=== PATIENT | female | born 1965 | race Caucasian/White ===

== ENCOUNTER 2017-07-08 08:15 | Emergency (ER) | payer MEDICAID ==
[~2017-07-08] VITALS: Ht 170.2 cm; Wt 65.0 kg
[~2017-07-08 08:15] MED LIST: ALBU.5I NEB; ALBU6.7H INH; BECL80AE3 INH; BUSP10TA PO; GABA300C5 PO; MELO7.5T4 PO; METO25TA3 PO; NEBUKIT5; OMEP40CA2 PO; PRAV80TA2 PO; SPIRCAP INH; TIOT12.9 INH; [UNRECOGNIZED DRUG - OTHER]
[2017-07-08 08:18] VITALS: BP 132/73; PULSE 67; RESP 15; TEMP 98.2; O2SAT 98
[2017-07-08] MEDS ORDERED: IBUPROFEN 800 MG TAB PO ONE (08:30)
[2017-07-08] MEDS ORDERED: TETANUS/DIPHTHERIA TOXOID ADULT 0.5 ML VIAL IM ONE (08:30)
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
[2017-07-08] MEDS ORDERED: IBUP-232 PO (09:27)
[2017-08-04] MEDS ORDERED: BUSP10TA PO (13:33)
[2017-08-17] MEDS ORDERED: SPIRCAP INH (20:39)
== END 2017-07-08 09:39 | disposition home or self-care (01) ==
LOC: NEPK 08:15
DX: S69.91XA Unspecified injury of right wrist, hand and finger(s), initial encounter (principal); S40.812A Abrasion of left upper arm, initial encounter; S40.811A Abrasion of right upper arm, initial encounter; S20.319A Abrasion of unspecified front wall of thorax, initial encounter; S80.812A Abrasion, left lower leg, initial encounter; Y08.89XA Assault by other specified means, initial encounter; Z72.0 Tobacco use; Z79.51 Long term (current) use of inhaled steroids; Z23 Encounter for immunization
CPT/HCPCS: 73130; 90471; 90714

== ENCOUNTER 2017-12-06 13:29 | Emergency (ER) | payer MEDICAID, OTHER ==
[~2017-12-06] VITALS: Ht 168.9 cm; Wt 54.0 kg
[~2017-12-06 13:29] MED LIST changes: -BECL80AE3 INH; +IBUP-232 PO; +MELO7.5T27 PO; -MELO7.5T4 PO; -NEBUKIT5; -TIOT12.9 INH; -[UNRECOGNIZED DRUG - OTHER]
[2017-12-06 14:01] VITALS: BP 126/82; PULSE 82; RESP 16; TEMP 98.6; O2SAT 97
[2017-12-06] MEDS ORDERED: RESP: ALBUTEROL 2.5 MG/IPRATROPIUM 0.5 MG NEB (SCH) NEB ONE (14:30)
[2017-12-06 14:41] LABS: AUTOMATED NEUTROPHIL # 4.9 TH/MM3 (1.8-7.7); BASOPHIL % 0.5 % (0.0-2.0); EOSINOPHIL # 0.2 TH/MM3 (0-0.4); EOSINOPHIL % 2.9 % (0.0-4.0); HEMATOCRIT 37.6 % (35.0-46.0); HEMOGLOBIN 13.4 GM/DL (11.6-15.3); LYMPH % 24.6 % (9.0-44.0); LYMPHOCYTE # 1.9 TH/MM3 (1.0-4.8); MEAN CELL VOLUME 89.8 FL (80.0-100.0); MEAN CORPUSCULAR HEMOGLOBIN 31.9 PG (27.0-34.0); MEAN CORPUSCULAR HGB CONC 35.6 % (32.0-36.0); MEAN PLATELET VOLUME 9.3 FL (7.0-11.0); MONO % 8.8 % (0.0-8.0); MONOCYTE # 0.7 TH/MM3 (0-0.9); NEUT % 63.2 % (16.0-70.0); PLATELET COUNT 234 TH/MM3 (150-450); RED BLOOD COUNT 4.19 MIL/MM3 (4.00-5.30); RED CELL DISTRIBUTION WIDTH 12.9 % (11.6-17.2); WHITE BLOOD COUNT 7.7 TH/MM3 (4.0-11.0)
[2017-12-06 14:55] LABS: BILIRUBIN, URINE NEG (NEG); BLOOD, URINE MOD (NEG); GLUCOSE,URINE NEG (NEG); HYALINE CAST, URINE 1 /lpf (RARE); KETONE, URINE TRACE mg/dL (NEG); MUCUS URINE FEW /lpf (OCC); NITRITE,URINE NEG (NEG); PH, URINE 5.5 (5.0-8.5); SQUAMOUS EPITHELIAL CELL URINE 3 /hpf (0-5); URINE COLOR YELLOW (YELLW/STRAW); URINE LEUKOCYTE ESTERASE SMALL (NEG)
[2017-12-06 15:04] LABS: BICARBONATE 26.9 MEQ/L (21.0-32.0); BLOOD UREA NITROGEN 25 MG/DL (7-18); CHLORIDE 106 MEQ/L (98-107); CREATININE 0.88 MG/DL (0.50-1.00); GLOMERULAR FILTRATION RATE 67 ML/MIN (>89); GLUCOSE,RANDOM 88 MG/DL (74-106); SODIUM (NA) 138 MEQ/L (136-145)
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
[2017-12-06 16:42] VITALS: BP 140/84; PULSE 96; RESP 18; O2SAT 98
[2017-12-06] MEDS ORDERED: RESP: ALBUTEROL 2.5 MG/IPRATROPIUM 0.5 MG NEB (PRN) NEB (18:30)
[2017-12-06 22:03] VITALS: BP 171/68; PULSE 91; RESP 17; TEMP 98.2; O2SAT 95
[2017-12-07 01:50] VITALS: O2SAT 96
[2017-12-07 07:04] VITALS: BP 124/60; PULSE 99; RESP 18; TEMP 97.7; O2SAT 98
[2017-12-07 11:06] VITALS: BP 140/79; PULSE 88; RESP 18; O2SAT 96
--- NOTE | 2017-12-07 12:21 | PD ---
Physical Exam Date Seen by Provider: Dec 07, 2017 Time Seen by Provider: 12:20 Narrative 52-year-old female previously medically cleared for psychiatric evaluation after being Matson acted. Patient was seen by Dr. Carter, the psychiatrist, and felt to be psychiatrically stable for discharge. The patient remains to be medically stable at this time. Follow-up should be based on Dr. Carter's psychiatric plan. Data Data Last Documented VS Vital Signs Date Time Temp Pulse Resp B/P (MAP) Pulse Ox O2 Delivery O2 Flow Rate FiO2 12/07/17 11:06 88 18 140/79 (99) 96 Room Air 12/07/17 07:04 97.7 Orders Orders Albuterol-Ipratropium Neb (Duoneb Neb) (12/06/17 14:30) Complete Blood Count With Diff (12/06/17 14:17) Thyroid Stimulating Hormone (12/06/17 14:17) Basic Metabolic Panel (Bmp) (12/06/17 14:17) Urinalysis - C+S If Indicated (12/06/17 14:17) Psych Screen (12/06/17 14:17) Drug Screen, Random Urine (12/06/17 14:17) Alcohol (Ethanol) (12/06/17 14:17) Diet Regular Basic (12/06/17 Dinner) Albuterol-Ipratropium Neb (Duoneb Neb) (12/06/17 18:30) Diet Regular Basic (12/07/17 Breakfast) Diet Regular Basic (12/07/17 Lunch) Labs Laboratory Tests Test 12/06/17 14:15 White Blood Count 7.7 TH/MM3 Red Blood Count 4.19 MIL/MM3 Hemoglobin 13.4 GM/DL Hematocrit 37.6 % Mean Corpuscular Volume 89.8 FL Mean Corpuscular Hemoglobin 31.9 PG Mean Corpuscular Hemoglobin Concent 35.6 % Red Cell Distribution Width 12.9 % Platelet Count 234 TH/MM3 Mean Platelet Volume 9.3 FL Neutrophils (%) (Auto) 63.2 % Lymphocytes (%) (Auto) 24.6 % Monocytes (%) (Auto) 8.8 % Eosinophils (%) (Auto) 2.9 % Basophils (%) (Auto) 0.5 % Neutrophils # (Auto) 4.9 TH/MM3 Lymphocytes # (Auto) 1.9 TH/MM3 Monocytes # (Auto) 0.7 TH/MM3 Eosinophils # (Auto) 0.2 TH/MM3 Basophils # (Auto) 0.0 TH/MM3 CBC Comment DIFF FINAL Differential Comment Urine Color YELLOW Urine Turbidity CLEAR Urine pH 5.5 Urine Specific [place] 1.030 Urine Protein TRACE mg/dL Urine Glucose (UA) NEG mg/dL Urine Ketones TRACE mg/dL Urine Occult Blood MOD Urine Nitrite NEG Urine Bilirubin NEG Urine Urobilinogen 2.0 MG/DL Urine Leukocyte Esterase SMALL Urine RBC 2 /hpf Urine WBC 2 /hpf Urine Squamous Epithelial Cells 3 /hpf Urine Hyaline Casts 1 /lpf Urine Mucus FEW /lpf Microscopic Urinalysis Comment CULT NOT INDICATED Blood Urea Nitrogen 25 MG/DL Creatinine 0.88 MG/DL Random Glucose 88 MG/DL Calcium Level 9.0 MG/DL Sodium Level 138 MEQ/L Potassium Level 3.5 MEQ/L Chloride Level 106 MEQ/L Carbon Dioxide Level 26.9 MEQ/L Anion Gap 5 MEQ/L Estimat Glomerular Filtration Rate 67 ML/MIN Thyroid Stimulating Hormone 3rd Gen 1.630 uIU/ML Urine Opiates Screen NEG Urine Barbiturates Screen NEG Urine Amphetamines Screen NEG Urine Benzodiazepines Screen NEG Urine Cocaine Screen POS Urine Cannabinoids Screen POS Ethyl Alcohol Level LESS THAN 3 MG/DL MDM Medical Record Reviewed: Yes Supervised Visit with DELROY: Yes Narrative Course 52-year-old female previously medically cleared for psychiatric evaluation after being Matson acted. Patient was seen by Dr. Carter, the psychiatrist, and felt to be psychiatrically stable for discharge. The patient remains to be medically stable at this time. Follow-up should be based on Dr. Carter's psychiatric plan. Diagnosis Primary Impression: Polysubstance abuse Additional Impression: Auditory hallucinations Disposition: 01 DISCHARGE HOME Condition: Stable Zoltan Galvez Dec 07, 2017 12:21
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
== END 2017-12-07 13:49 | disposition home or self-care (01) ==
LOC: NEPJ 13:29
DX: F12.959 Cannabis use, unspecified with psychotic disorder, unspecified (principal); F14.959 Cocaine use, unspecified with cocaine-induced psychotic disorder, unspecified; I10 Essential (primary) hypertension; J44.9 Chronic obstructive pulmonary disease, unspecified; E78.00 Pure hypercholesterolemia, unspecified; F20.9 Schizophrenia, unspecified; F41.9 Anxiety disorder, unspecified; M06.9 Rheumatoid arthritis, unspecified; F17.210 Nicotine dependence, cigarettes, uncomplicated
CPT/HCPCS: 80048; 80307; 81001; 84443; 85025; 94664; 99284

== ENCOUNTER 2018-04-13 17:30 | Emergency (ER) | payer MEDICAID, OTHER ==
[2018-04-13 17:43] VITALS: BP 126/58; PULSE 73; RESP 16; TEMP 98.1; O2SAT 96
[2018-04-13] MEDS ORDERED: MUPI2OIN TOPICAL (18:11)
[2018-04-13] MEDS ORDERED: BACT800T5 PO (18:11)
[2018-04-13] MEDS ORDERED: KETO10 PO (18:11)
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
== END 2018-04-13 18:20 | disposition home or self-care (01) ==
LOC: PHEFT 17:30
DX: L08.9 Local infection of the skin and subcutaneous tissue, unspecified (principal); M06.9 Rheumatoid arthritis, unspecified; F41.9 Anxiety disorder, unspecified; E78.00 Pure hypercholesterolemia, unspecified; J44.9 Chronic obstructive pulmonary disease, unspecified; F17.210 Nicotine dependence, cigarettes, uncomplicated; F12.90 Cannabis use, unspecified, uncomplicated; Z59.0 Homelessness; Z79.51 Long term (current) use of inhaled steroids
CPT/HCPCS: 99283